=== PATIENT | female | born 1995 | race African-American/Black ===

== ENCOUNTER 2022-04-18 10:42 | Emergency (ER) | payer BC ==
[~2022-04-18] VITALS: Ht 170.2 cm; Wt 63.5 kg
[2022-04-18 11:11] VITALS: BP_SYST 123
--- NOTE | 2022-04-18 11:25 | NUR ---
CARE ENDORSED TO GIANA POLLOCK. PT VSS. NAD NOTED. AMBULATORY AND AAOX4. NO VOMITING NOTED AT THIS TIME. PT CHANGING INTO GOWN.
--- NOTE | 2022-04-18 11:26 | NUR ---
RECEIVED PT FROM GIANA GASTON. PT HAS C/O N/V, GENERALIZED WEAKNESS, DEHYDRATION. PT IS 15 WEEKS . AAOX4. RESP E/U. ON R/A. ABDOMEN SOFT, NONDISTENDED. DISTAL PULSES NORMAL, SKIN WARM, NO EDEMA. DENIES PAIN. SIDERAILS UP X2.
--- NOTE | 2022-04-18 11:44 | NUR ---
DR. CHEW AT BEDSIDE TO ASSESS PT.
[2022-04-18] MEDS ORDERED: NACL 0.9% 1,000 ML IV ONE (11:45)
[2022-04-18] MEDS ORDERED: METOCLOPRAMIDE HCL 10 MG/2 ML VIAL IVP ONE (11:45)
--- NOTE | 2022-04-18 12:02 | NUR ---
NS 1000ML BOLUS INITIATED, TO BE COMPLETED AT 1302.
[2022-04-18 12:47] LABS: CALCIUM 9.3 mg/dL (8.4-11.0); CREATININE 0.64 mg/dL (0.55-1.30); POTASSIUM 3.5 mmol/L (3.5-5.1)
[2022-04-18 12:51] LABS: BILIRUBIN,URINE NEGATIVE (NEGATIVE); BLOOD, URINE 3+ (NEGATIVE); COLOR,URINE YELLOW (YELLOW); GLUCOSE,URINE NEGATIVE (NEGATIVE); KETONES,URINE 2+ (NEGATIVE); LEUKOCYTE ESTERASE ,URINE TRACE (NEGATIVE); NITRITE, URINE NEGATIVE (NEGATIVE); PROTEIN URINE TRACE (NEGATIVE); UROBILINOGEN,URINE 0.2 (0.2-1.0)
--- NOTE | 2022-04-18 12:55 | NUR ---
PT TAKEN FOR U/S.
[2022-04-18 13:04] LABS: CLARITY/URINE SLIGHTLY HAZY (CLEAR)
[2022-04-18 13:15] LABS: BACTERIA,URINE MODERATE /HPF (None Seen); RBC,URINE 0-3 /HPF (0-3)
[2022-04-18] MEDS ORDERED: cefTRIAXone 1 GM IVPB PREMIX 50 ML IV ONE (13:15)
[2022-04-18 13:24] LABS: ALBUMIN 2.9 g/dL (3.4-4.8); TOTAL BILIRUBIN 0.3 mg/dL (0.0-1.0)
[2022-04-18] MEDS ORDERED: PROC10TA13 PO (14:08)
--- NOTE | 2022-04-18 14:36 | NUR ---
Patient given written and verbal discharge instructions and verbalizes understanding. ER MD discussed with patient the results and treatment provided. Patient in stable condition. ID arm band removed. IV catheter removed intact and dressing applied, no active bleeding. Rx of Compazine given. Patient educated on pain management and to follow up with PMD. Opportunity for questions provided and answered. Medication side effect fact sheet provided.
[2022-04-18 14:43] VITALS: BP_SYST 123
[2022-04-18 16:37] LABS: HEMOGLOBIN 11.6 g/dL (12.0-16.0); MEAN CORPUSCULAR HEMOGLOBIN 26 pg (27-31); MEAN CORPUSCULAR HGB CONC 33 % (32-36); MEAN CORPUSCULAR VOLUME 81 fL (79.0-98.0); PLATELET COUNT (AUTO) 281 K/uL (130-430); RED BLOOD CELL COUNT(AUTO) 4.41 MIL/uL (4.2-6.2); RED CELL DISTRIBUTION WIDTH 13.3 % (9.0-15.0)
[2022-04-18 16:38] LABS: BASOPHILS % (AUTO) 0.3 % (0.0-2.0); EOSINOPHILS % (AUTO) 0.9 % (0.0-4.0); LYMPHOCYTES % (AUTO) 28.3 % (20.5-51.5); MONOCYTES % (AUTO) 5.1 % (1.7-9.3); NEUTROPHILS % (AUTO) 65.4 % (40.0-70.0)
[2022-04-18 16:39] LABS: EOSINOPHILS # (AUTO) 0.1 K/uL (0.0-0.4); LYMPHOCYTES # (AUTO) 2.7 K/uL (1.0-5.5); MONOCYTES # (AUTO) 0.5 K/uL (0.0-1.0); NEUTROPHILS # (AUTO) 6.2 K/uL (1.8-7.7)
[2022-04-18 16:57] LABS: WHITE BLOOD COUNT (AUTO) 9.4 K/uL (4.8-10.8)
--- NOTE | 2022-04-27 21:07 | NUR ---
ADDENDUM Rocephin 1grm ivpb Premix 50ml 100ml/HR start time 14:08hr end time 15:08hr Nacl 0.9% 1000ml start time 12:01hr end time 13:01hr
== END 2022-04-18 14:36 | disposition home or self-care (01) ==
LOC: SED 10:42
DX: O21.0 Mild hyperemesis gravidarum (principal); Z3A.15 15 weeks gestation of pregnancy; Z79.899 Other long term (current) drug therapy
CPT/HCPCS: 99284; 96365; 76805; 96361; 96375; 80053; 81000; 84702; 83690; 85025; 87086; 36415; J0696; J2765; J7030

== ENCOUNTER 2022-09-25 21:17 | Inpatient (IN) | payer BC ==
[~2022-09-25] VITALS: Ht 30.5 cm; Wt 0.5 kg
[~2022-09-25 21:17] MED LIST: PROC10TA13 PO
[2022-09-25] MEDS ORDERED: NALBUPHINE HCL 10 MG/ML AMP IVP PRN (22:00)
[2022-09-25] MEDS ORDERED: LR 1,000 ML IV ONE (22:00)
[2022-09-25] MEDS ORDERED: NALBUPHINE HCL 10 MG/ML AMP IM PRN (22:00)
[2022-09-25] MEDS ORDERED: LR 1,000 ML IV SCH (22:00)
[2022-09-25] MEDS ORDERED: LR 500 ML IV ONE (22:00)
[2022-09-25] MEDS ORDERED: TERBUTALINE SULFATE 1 MG/ML VIAL SUBCUT ONE (22:00)
[2022-09-25 23:00] LABS: BASOPHILS % (AUTO) 0.4 % (0.0-2.0); EOSINOPHILS # (AUTO) 0.1 K/uL (0.0-0.4); HEMATOCRIT 34.8 % (36-48); HEMOGLOBIN 11.3 g/dL (12.0-16.0); LYMPHOCYTES % (AUTO) 27.8 % (20.5-51.5); MEAN CORPUSCULAR HEMOGLOBIN 27 pg (27-31); MEAN CORPUSCULAR HGB CONC 33 % (32-36); MEAN CORPUSCULAR VOLUME 82 fL (79.0-98.0); MONOCYTES # (AUTO) 0.6 K/uL (0.0-1.0); MONOCYTES % (AUTO) 5.2 % (1.7-9.3); NEUTROPHILS # (AUTO) 7.2 K/uL (1.8-7.7); NEUTROPHILS % (AUTO) 65.6 % (40.0-70.0); PLATELET COUNT (AUTO) 172 K/uL (130-430); RED BLOOD CELL COUNT(AUTO) 4.27 MIL/uL (4.2-6.2); WHITE BLOOD COUNT (AUTO) 10.9 K/uL (4.8-10.8)
[2022-09-25] MEDS ORDERED: FENT2mCg/mL-ROPIVA0.2%/NS EPID 200 ML EP SCH (23:45)
[2022-09-25] MEDS ORDERED: fentaNYL CITRATE/PF 100 MCG/2 ML AMP ONE (23:51)
[2022-09-25] MEDS ORDERED: ROPIVACAINE HCL/PF 0.2% 200 ML ONE (23:51)
[2022-09-26] MEDS ORDERED: OXYTOCIN/0.9 % SODIUM CHLORIDE 1,000 ML IV SCH ×2 (02:30→03:30)
[2022-09-26] MEDS ORDERED: ANUSOL 1 EA SUPP.RECT (PREPARATION H) RC PRN (03:30)
[2022-09-26] MEDS ORDERED: DIPHTH,PERTUSS(ACELL),TET VAC 0.5 ML VIAL (Tdap) I.M. PRN (03:30)
[2022-09-26] MEDS ORDERED: HYDROcodone/ACETAMIN 5-325 MG TAB (NORCO/ VICODIN) PO PRN (03:30)
[2022-09-26] MEDS ORDERED: HYDROCORTISONE 0.5% CREAM 28.4 GM CREAM.GM. TP PRN (03:30)
[2022-09-26] MEDS ORDERED: NALOXONE HCL 0.4 MG/ML AMP (NARCAN) IVP PRN (03:30)
[2022-09-26] MEDS ORDERED: MEASLES,MUMPS&RUBELLA VACC/PF 12500 UNIT/0.5 ML VIAL SUBQ PRN (03:30)
[2022-09-26] MEDS ORDERED: OXYCODONE/ACETAMINOPHEN 5-325 TABLET PO PRN ×2 (03:30)
[2022-09-26] MEDS ORDERED: WITCH HAZEL LEAF 1 MED.PAD MED.PAD TP PRN (03:30)
[2022-09-26] MEDS ORDERED: DERMOPLAST SPRAY TP PRN (03:30)
[2022-09-26] MEDS ORDERED: RHO(D) IMMUNE GLOBULIN/MALTOSE 1500 UNITS/1.3 ML (WINHRO) IM PRN (03:30)
[2022-09-26] MEDS ORDERED: METHYLERGONOVINE MALEATE 0.2 MG TABLET PO PRN (03:30)
[2022-09-26] MEDS ORDERED: OXYTOCIN/0.9 % SODIUM CHLORIDE 1,000 ML IV ONE (03:30)
[2022-09-26] MEDS: IBUPROFEN 600 MG TABLET PO SCH ×3 (06:03→18:35)
[2022-09-26] MEDS ORDERED: DOCUSATE SODIUM 100 MG CAPSULE PO SCH (09:00)
[2022-09-26 10:38] LABS: BASOPHILS # (AUTO) 0.1 K/uL (0.0-0.2); BASOPHILS % (AUTO) 0.6 % (0.0-2.0); EOSINOPHILS # (AUTO) 0.1 K/uL (0.0-0.4); EOSINOPHILS % (AUTO) 0.5 % (0.0-4.0); HEMATOCRIT 33.4 % (36-48); HEMOGLOBIN 10.6 g/dL (12.0-16.0); LYMPHOCYTES # (AUTO) 2.7 K/uL (1.0-5.5); LYMPHOCYTES % (AUTO) 23.4 % (20.5-51.5); MEAN CORPUSCULAR HEMOGLOBIN 27 pg (27-31); MEAN CORPUSCULAR HGB CONC 32 % (32-36); MEAN CORPUSCULAR VOLUME 83 fL (79.0-98.0); MONOCYTES # (AUTO) 0.6 K/uL (0.0-1.0); MONOCYTES % (AUTO) 4.9 % (1.7-9.3); NEUTROPHILS # (AUTO) 8.2 K/uL (1.8-7.7); NEUTROPHILS % (AUTO) 70.6 % (40.0-70.0); PLATELET COUNT (AUTO) 163 K/uL (130-430); RED BLOOD CELL COUNT(AUTO) 4.02 MIL/uL (4.2-6.2); WHITE BLOOD COUNT (AUTO) 11.7 K/uL (4.8-10.8)
[2022-09-26] MEDS ORDERED: SENNOSIDES/DOCUSATE SODIUM 1 TAB TABLET(SENOKOT-S) PO SCH (21:00)
[2022-09-26] MEDS ORDERED: TEMAZEPAM 15 MG CAPSULE PO PRN (21:00)
--- NOTE | 2022-09-27 13:03 | NUR ---
Loan Counselor ZYGLO TECHNICIAN received a referral from Dr. Romo dated 09/25/22 at 18:09 for pt. scoring high on the Depression scale. ZYGLO TECHNICIAN called the OB to ask if pt was going to be discharged and learned that pt. was discharged on 09/26/22. ZYGLO TECHNICIAN learned that this pt had been discharged and had been a surrogate. ZYGLO TECHNICIAN called former pt. Nelida Ireland who stated she was home and doing well. Beka was surprised to hear that she scored high on the questionnaire, had not experienced any depression with her own children and continued to be surprised. Beka stated she is not depressed, her boyfriend is with her is a good support and did not need anything. ZYGLO TECHNICIAN mentioned some resources such as a Virtual group, but Beka denied needing such resources, but kindly declined. ZYGLO TECHNICIAN gave Beka her contact and asked her to reach out to her OB when she goes for a follow up apt. if she should need any support. ZYGLO TECHNICIAN will remain available as needed.
== END 2022-09-26 18:45 | disposition home or self-care (01) | DRG 807 ==
LOC: SPU 21:17 → OBSVTOIN 21:40
PROVIDERS: ADMIT Specialist; ATTEND Specialist
PROC: 10D07Z6 Extraction of Products of Conception, Vacuum, Via Natural or Artificial Opening (ICD-10-PCS; principal; 2022-09-26)
PROC: 0HQ9XZZ Repair Perineum Skin, External Approach (ICD-10-PCS; 2022-09-26)
PROC: 3E0R3BZ Introduction of Anesthetic Agent into Spinal Canal, Percutaneous Approach (ICD-10-PCS; 2022-09-26)
PROC: 00HU33Z Insertion of Infusion Device into Spinal Canal, Percutaneous Approach (ICD-10-PCS; 2022-09-26)
DX: O76 Abnormality in fetal heart rate and rhythm complicating labor and delivery (principal); Z37.0 Single live birth; Z3A.38 38 weeks gestation of pregnancy; O70.0 First degree perineal laceration during delivery; Z20.822 Contact with and (suspected) exposure to COVID-19
CPT/HCPCS: 36415; 85025; 86592; 86780; 86886; 86900; 86901; G0378; J2590; J3010

== ENCOUNTER 2023-08-01 21:44 | Emergency (ER) | payer BC, OTHER ==
[~2023-08-01] VITALS: Ht 170.2 cm; Wt 63.5 kg
[~2023-08-01 21:44] MED LIST changes: -PROC10TA13 PO; +PROC10TA29 PO
[2023-08-01 22:07] VITALS: BP_SYST 139; PULSE 80; RESP 18; TEMP 98; O2SAT 99
[2023-08-01] MEDS ORDERED: cefTRIAXone 1 GM in LIDOCAINE 1%, 20 ML MDV 2.1 ML IM ONE (22:15)
[2023-08-01] MEDS ORDERED: CIPR500T5 PO (23:01)
[2023-08-01 23:10] VITALS: BP_SYST 114; PULSE 76; RESP 20; TEMP 98; O2SAT 100
[2023-08-01 23:25] LABS: BILIRUBIN,URINE NEGATIVE (NEGATIVE); BLOOD, URINE 3+ (NEGATIVE); CLARITY/URINE SL CLOUDY (CLEAR); COLOR,URINE YELLOW (YELLOW); GLUCOSE,URINE NEGATIVE (NEGATIVE); KETONES,URINE NEGATIVE (NEGATIVE); LEUKOCYTE ESTERASE ,URINE TRACE (NEGATIVE); NITRITE, URINE NEGATIVE (NEGATIVE); PROTEIN URINE 1+ (NEGATIVE); UROBILINOGEN,URINE 0.2 (0.2-1.0)
[2023-08-01 23:41] LABS: RBC,URINE 80-100 /HPF (0-3)
[2023-08-01 23:46] LABS: BACTERIA,URINE FEW /HPF (None Seen)
== END 2023-08-01 23:10 | disposition home or self-care (01) ==
LOC: SED 21:44
DX: N39.0 Urinary tract infection, site not specified (principal); R30.9 Painful micturition, unspecified; R10.30 Lower abdominal pain, unspecified; Z79.899 Other long term (current) drug therapy
CPT/HCPCS: 99283; 81001; 87086; 96372; 81000; 81015; J0696; J2001